=== PATIENT | female | born 1955 | race Caucasian/White ===

== ENCOUNTER 2017-07-28 01:52 | Emergency (ER) | payer BC ==
[~2017-07-28] VITALS: Ht 167.6 cm; Wt 79.0 kg
[2017-07-28] MEDS ORDERED: PLEASE ENTER ALLERGIES MC SCH ×2 (02:30)
[2017-07-28] MEDS ORDERED: PLEASE ENTER HEIGHT AND WEIGHT MC SCH (02:30)
[2017-07-28] MEDS ORDERED: ONDANSETRON 2MG/ML, 2ML IVPush ONE (02:30)
[2017-07-28] MEDS ORDERED: SODIUM CHLORIDE 0.9% 1,000ML IVBOLUS ONE (02:30)
[2017-07-28 02:34] LABS: HEMATOCRIT 42.2 % (34.6-47.8); WHITE BLOOD COUNT 18.9 x10^3/uL (3.4-10)
[2017-07-28 02:46] LABS: ASPARTATE AMINO TRANSFERASE 12 U/L (15-37); BLOOD UREA NITROGEN 23 mg/dL (7-18)
[2017-07-28 02:50] LABS: IS PT STATUS REG ER OR PRE ER? YES
[2017-07-28 04:35] VITALS: BP 131/67
== END 2017-07-28 04:37 | disposition home or self-care (01) ==
LOC: ED 03:17
DX: L50.9 Urticaria, unspecified (principal); T78.1XXA Other adverse food reactions, not elsewhere classified, initial encounter; Y92.89 Other specified places as the place of occurrence of the external cause
CPT/HCPCS: 36415; 80053; 84484; 85025; 93005; 96360; 99285; J7030